=== PATIENT | female | born 1945 | race Asian ===

== ENCOUNTER 2016-12-20 11:05 | Day surgery (SDC) | payer MEDICARE, OTHER ==
[~2016-12-20] VITALS: Ht 163.8 cm; Wt 54.0 kg
[~2016-12-20 11:05] MED LIST: ASPI-973 PO; CALC600T12 PO; CHOL200025 PO; MULT-1018 PO; SENN-133 PO; Sodium Chloride LOK Flush 10 mL Syringe IV PRN; fentaNYL-PF 50 mCg/mL 2 mL Inj IVPUSH PRN
[2016-12-20 11:36] VITALS: BP 115/78; PULSE 84; RESP 16; O2SAT 98
[2016-12-20] MEDS ORDERED: DOCU-41 PO (11:36)
[2016-12-20] MEDS ORDERED: [UNRECOGNIZED DRUG - OTHER] PO (11:36)
[2016-12-20] MEDS: 0.9% Sodium Chloride 1,000 ML IV PRN ×2 (12:38→13:04)
[2016-12-20 13:15] VITALS: BP 92/60; PULSE 64; O2SAT 95
[2016-12-20 13:25] VITALS: BP 94/58; PULSE 66; O2SAT 97
[2016-12-20 13:44] VITALS: BP 121/64; PULSE 63; O2SAT 98
--- NOTE | 2016-12-20 14:02 | ENDO ---
[address] [address] ENDOSCOPY PROCEDURE PATIENT: DANY ROSS : 1945 MR#: [id number] ADMIT: 12/20/2016 JOB ID: [id number] DATE OF SERVICE: 12/20/2016 PRIMARY PROVIDER: Tyler Pina MD PROCEDURE: Colonoscopy. INDICATIONS: A 71-year-old female with a personal history of colon polyps, returning for surveillance. EQUIPMENT: PCFH-180AL SEDATION: 3 mg Versed, 75 mcg fentanyl. COMPLICATIONS: None identified. BOWEL PREPARATION: Fair, adequate exam. PROCEDURE INFORMATION: After the risks and benefits were explained, written and verbal informed consent was obtained. The patient was brought into the endoscopy suite and placed into the left lateral decubitus position. Sedation was achieved as above. A digital rectal examination accomplished. Mild internal hemorrhoids noted. The scope was introduced into the rectum and advanced under direct visualization to the cecum as identified by the appendiceal orifice and ileocecal valve. The scope was slowly withdrawn to carefully examine the mucosa for any defects or lesions. Multiple direct views were made through the dentate line for exclusion of pathology. The colon was decompressed. The scope removed from the patient who tolerated the procedure well. FINDINGS: No significant polyps, mass lesions, or inflammatory features identified throughout. There was some scattered diverticula even into the right colon. The patient had melanosis coli which was more pronounced in the right colon. ENDOSCOPIC DIAGNOSES: 1. Melanosis coli. 2. Mild diverticulosis. 3. Mild hemorrhoids. RECOMMENDATIONS: Repeat colonoscopy in five years' time considering personal history of colon polyps.
== END 2016-12-20 23:59 | disposition home or self-care (01) ==
LOC: END 11:05
PROVIDERS: ATTEND Internal Medicine Gastroenterology
DX: Z12.11 Encounter for screening for malignant neoplasm of colon (principal); Z86.010 Personal history of colon polyps; K64.8 Other hemorrhoids; K63.89 Other specified diseases of intestine; K57.30 Diverticulosis of large intestine without perforation or abscess without bleeding; Z79.82 Long term (current) use of aspirin
CPT/HCPCS: 99153; G0105; G0500; J2250; J3010; J7030